=== PATIENT | female | born 1995 | race Caucasian/White ===

== ENCOUNTER 2018-10-21 21:23 | Emergency (ER) | payer MEDICAID ==
--- NOTE | 2018-10-22 03:26 | ED Physician Chart ---
ED Chief Complaint/HPI - Patient Information Date Seen:: 10/21/18 Time Seen:: 21:40 Chief Complaint:: EPIGASTRIC PAIN History of Present Illness:: 23 YR OLD FEMALE WITH EPIGASTRIC PAIN PT AND AWAITING OB CARE NO VOMITING NO FEVER COUGH NO HEADACHE OR DIZZINESS NO LEG PAINS OR NUMBNESS IN [facility] OTHERWSE BURNING TYPE EPIGASTRIC PAIN Allergies:: Allergies Allergy/AdvReac Type Severity Reaction Status Date / Time No Known Allergies Allergy Verified 10/21/18 21:38 Vitals:: Vital Signs - 8 hr 10/21/18 21:30 Temp 97.5 F HR 88 RR 16 BP 123/59 O2 Sat % 97 ED Review of Systems - Review of Systems General/Constitutional: No fever, No chills, No weight loss, No weakness, No diaphoresis, No edema, No loss of appetite Skin: No skin lesions, No rash, No bruising Head: No headache, No light-headedness Eyes: No loss of vision, No pain, No diplopia ENT: No earache, No nasal drainage, No sore throat, No tinnitus Neck: No neck pain, No swelling, No thyromegaly, No stiffness, No mass noted Cardio Vascular: No chest pain, No palpitations, No PND, No orthopnea, No edema Pulmonary: No SOB, No cough, No sputum, No wheezing GI: Pain G/U: No dysuria, No frequency, No hematuria Musculoskeletal: No bone or joint pain, No back pain, No muscle pain Endocrine: No polyuria, No polydipsia Psychiatric: No prior psych history, No depression, No anxiety, No suicidal ideation Hematopoietic: No bruising, No lymphadenopathy Allergic/Immuno: No urticaria, No angioedema Neurological: No syncope, No focal symptoms, No weakness, No paresthesia, No headache, No seizure, No dizziness, No confusion, No vertigo ED Past Medical History - Past Medical History Past Medical History: No significant medical hx Family Medical History - Family Member Father Ethnicity: ED Physical Exam - Physical Examination General/Constitutional: Awake, Well-developed, well-nourished, Alert, No distress, GCS 15, Non-toxic appearing, Ambulatory Head: Atraumatic Eyes: Lids, conjuctiva normal, PERRL, EOMI Skin: Nl inspection, No rash, No skin lesions, No ecchymosis, Well hydrated, No lymphadenopathy ENMT: External ears, nose nl, Nasal exam nl, Lips, teeth, gums nl Neck: Nontender, Full ROM w/o pain, No JVD, No nuchal rigidity, No bruit, No mass, No stridor Respiratory: Nl effort/Exclusion, Clear to Auscultation, No Wheeze/Rhonchi/Rales Cardio Vascular: RRR, No murmur, gallop, rubs, NL S1 S2 GI: No tenderness/rebounding/guarding, No organomegaly, No hernia, Normal BS's, Nondistended, No mass/bruits, No McBurney tenderness : No CVA tenderness Extremities: No tenderness or effusion, Full ROM, normal strength in all extremities, No edema, Normal digits & nails Neuro/Psych: Alert/oriented, DTR's symmetric, Normal sensory exam, Normal motor strength, Judgement/insight normal, Mood normal, Normal gait, No focal deficits Misc: Normal back, No paraspinal tenderness ED Labs/Radiology/EKG Results - Lab Results Results: Laboratory Tests 10/21/18 21:43 POC Ur Test Positive ED Assessment - Assessment General Assessment: EPIGASTRIC PAIN R/O GASTRITIS ED Septic Shock - . Is Septic Shock (SBP<90, OR Lactate>4 mmol\L) present?: No - <6hrs of presentation: Vital Signs: Vital Signs - 8 hr 10/21/18 21:30 Temp 97.5 F HR 88 RR 16 BP 123/59 O2 Sat % 97 ED Reassessment (Disposition) - Reassessment Reassessment:: EPIGASTRIC PAINS - Diagnosis Diagnosis:: EPIGASTRIC PAINS - Aftercare/Follow up Instructions Aftercare/Follow-Up Instructions:: Counseled pt regarding lab results/diagnosis & need follow up Medication Prescribed:: SUGGESTED OTC MYLANTA F/U OB RETURN IF WORSE - Patient Disposition Discharge/Transfer:: Home Condition at Disposition:: Stable
== END 2018-10-21 22:07 | disposition home or self-care (01) ==
LOC: ER 21:23
DX: O26.891 Other specified pregnancy related conditions, first trimester (principal); R10.13 Epigastric pain; Z3A.00 Weeks of gestation of pregnancy not specified
CPT/HCPCS: 81025-TC